=== PATIENT | male | born 2000 | race Caucasian/White ===

== ENCOUNTER 2021-11-03 15:41 | Emergency (ER) | payer OTHER, SELFPAY ==
[2021-11-03] VITALS (7 sets, daily range): BP systolic 135–149; BP diastolic 69–73; PULSE 112–125; RESP 16–24; TEMP 36.7–39.4; O2SAT 95–100
--- NOTE | 2021-11-03 15:45 | ECG_ITS ---
Measurements Intervals [place] Rate: 121 P: 55 UT: 144 QRS: 101 QRSD: 92 T: 27 QT: 286 QTc: 407 Interpretive Statements SINUS TACHYCARDIA RIGHT AXIS DEVIATION DELAYED PRECORDIAL R/S TRANSITION MINIMAL Q WAVES- INFERIOR LEADS BORDERLINE T WAVE ABNORMALITY- INFERIOR LEADS ABNORMAL ECG Electronically Signed On 11-03-2021 16:04:28 CDT by Hitesh Pichardo D.O.
[2021-11-03 16:39] LABS: SARS-CoV-2 RNA PCR Positive
[2021-11-03] MEDS: ACETAMINOPHEN 500 MG TABLET 1000 MG PO (17:00)
[2021-11-03] MEDS: SODIUM CHLORIDE 0.9% IV 1,000 ML 999 ML IV CONT (17:01)
--- NOTE | 2021-11-03 18:16 | ED.GENADULT ---
HPI - General Adult General Chief complaint: Arrhythmia/Palpitations Stated complaint: increased heartrate Time Seen by Provider: 11/03/21 16:53 History of Present Illness HPI narrative: Patient is a 21-year-old male who presents ER with complaints of fever. He was sent here from an urgent care because they felt his heart rate was too fast and he may be in an arrhythmia. Patient is in a sinus tachycardia. Patient has no chest pain or pressure and does not sense his heart racing. No lightheadedness. Reports she only went to the urgent care to be evaluated for fever that he has had each of the previous 2 days. Associated with a tickle in his throat. No other symptoms. Home COVID test were negative. Related Data Allergies Allergy/AdvReac Type Severity Reaction Status Date / Time Penicillins Allergy Unknown Seizure Verified 11/03/21 16:50 Review of Systems Review of Systems: All systems reviewed & are unremarkable except as noted in HPI and below Constitutional: Constitutional: Reports chills, Reports fatigue and Reports fever(s) ENT: Denies nasal congestion and Reports sore throat Cardiovascular: Cardiovascular: Denies chest pain, Denies rapid heart rate and Denies radiating jaw, neck or arm pain Respiratory: Respiratory: Denies chest congestion, Denies cough and Denies dyspnea Gastrointestinal: Gastrointestinal: Denies abdominal pain, Denies nausea and Denies vomiting PMFSH Past Medical History Medical History (Updated 11/03/21 @ 18:20 by Dejuan Watkins MD) Healthy adult male Surgical History Surgical History (Updated 11/03/21 @ 18:20 by Dejuan Watkins MD) History of appendectomy Family History Family History (Updated 07/13/18 @ 11:51 by DOCTOR UNKNOWN) Mother Hypertension Other Malignant neoplasm of prostate Social History Social History Smoking status: Never smoker Alcohol intake: never Exam Narrative: GENERAL: Well-appearing, well-nourished, and in no acute distress. HEAD: Normocephalic, atraumatic. CHEST: Clear to auscultation. No respiratory distress. HEART: Tachycardic and regular. Normal peripheral pulses. ABDOMEN: Soft, nontender, nondistended. EXTREMITIES: Normal range of motion. No edema. SKIN: Warm, dry, no rash. NEURO: Alert and oriented x3. PSYCH: Normal mood and affect. Course Course Emergency Course: Patient informed of results. Discharge home. Patient given fluids and antipyretics. He is not a candidate for antiviral therapy is not considered high risk. Vital Signs Vital signs: Vital Signs Temperature 98.0 F 11/03/21 15:50 Pulse Rate 125 H 11/03/21 15:50 Respiratory Rate 20 11/03/21 15:50 Blood Pressure 149/69 H 11/03/21 15:50 Pulse Oximetry 100 11/03/21 15:50 Oxygen Delivery Room Air 11/03/21 15:50 Temperature 102.9 F H 11/03/21 18:01 Pulse Rate 113 H 11/03/21 16:52 Respiratory Rate 16 11/03/21 16:52 Blood Pressure 148/71 H 11/03/21 16:52 Pulse Oximetry 95 11/03/21 16:52 Oxygen Delivery Room Air 11/03/21 15:50 Medical Decision Making Vital Signs Vital Signs: Vital Signs Temperature 98.0 F 11/03/21 15:50 Pulse Rate 125 H 11/03/21 15:50 Respiratory Rate 20 11/03/21 15:50 Blood Pressure 149/69 H 11/03/21 15:50 Pulse Oximetry 100 11/03/21 15:50 Oxygen Delivery Room Air 11/03/21 15:50 Temperature 102.9 F H 11/03/21 18:01 Pulse Rate 113 H 11/03/21 16:52 Respiratory Rate 16 11/03/21 16:52 Blood Pressure 148/71 H 11/03/21 16:52 Pulse Oximetry 95 11/03/21 16:52 Oxygen Delivery Room Air 11/03/21 15:50 Lab Data Labs: Lab Results 11/03/21 Range/Units 15:56 SARS-CoV-2 RNA (RT-PCR) Positive A ECG Data EKG #1: ECG completion date: 11/03/21 ECG completion time: 15:50 EKG Interpretation: tachycardia (121), sinus rhythm, no ectopy, no ST changes, normal QRS, normal QT and NL axis Discharge Plan Discharge Clinical Impress
== END 2021-11-03 18:37 | disposition home or self-care (01) ==
PROVIDERS: Emergency Provider Emergency Medicine
DX: U07.1 COVID-19 (principal); R00.0 Tachycardia, unspecified; R94.31 Abnormal electrocardiogram [ECG] [EKG]
CPT/HCPCS: 93005; 96360; 96361; 99283; A9270; C9803; J7030; U0003; U0005